=== PATIENT | male | born 1980 | race Caucasian/White ===

== ENCOUNTER → 2017-02-01 | Outpatient (CLI) | payer BC, OTHER ==
[~2017-02-01] MED LIST: AMPH20TA2 PO; ATOR10TA66 PO; FLT05NA16 NS; HYDR1CAP2 PO; LISI40TA PO; PANT20TA PO; SUCR1TAB23 PO
--- NOTE | 2017-02-01 16:07 | Diagnostic Imaging Report ---
PROCEDURE: MRI lumbar spine. TECHNIQUE: Multiplanar, multisequence MRI of the lumbar spine was performed without contrast. INDICATION: Chronic low back pain. COMPARISON: 04/28/2012 exam is reviewed. The patient has had two back surgeries. FINDINGS: There is satisfactory alignment of the posterior spinal line. The vertebral body heights are preserved. There is mild disc desiccation in the lower lumbar spine. Moderate disc height loss is seen. There is bone marrow edema seen in L5 vertebral body which appears to be mostly centered along the upper and lower endplates and less prominent edema along the lower endplate of L4 and in the left L4 pedicle. These appear to be secondary to adjacent degenerative facets and disc changes with no suspicious focal marrow abnormality. The cauda equina and conus medullaris appear grossly unremarkable. T12/L1: No disc herniation, no spinal canal or foraminal stenosis. L1/2: No disc herniation. No spinal canal or foraminal stenosis. L2/3: No disc herniation. There is mild to moderate facet hypertrophy. No central canal, lateral recess or foraminal stenosis. L3/4: There is a central disc protrusion on top of a minimal diffuse bulge. There is mild bilateral facet hypertrophy. No central canal or lateral recess stenosis. No foraminal narrowing. L4/5: There is a diffuse disc bulge with a superimposed central disc protrusion that has a mild caudally migrated component. There is bilateral facet arthropathy of moderate degree. There is suggestion of prior limited left hemilaminectomy and removal of portions of the left ligamentum flavum at this level. There is no remaining significant spinal canal stenosis or lateral recess narrowing. The foramina demonstrate [id number] stenosis on the left and no significant stenosis on the right side. L5/S1: There is a disc bulge asymmetric to the left and mild facet arthropathy bilaterally. No central canal stenosis. There is mild lateral recess stenosis on the left and no lateral recess stenosis on the right side. There is no foraminal stenosis on the right and there is moderate foraminal stenosis on the left abutting the exiting left L5 nerve root. The far lateral portion of the disc also is abutting the exiting left L5 nerve root. IMPRESSION: Lower lumbar spine disc and facet degenerative changes. There is moderate foraminal stenosis on the left at L5/S1 level and slightly prominent left far lateral component of the disc abutting the left L5 nerve. Dictated by: Dictated on workstation # [id number]
== END ==
LOC: RAD 14:18
PROVIDERS: ATTEND Orthopaedic Surgery Orthopaedic Surgery of the Spine
DX: M51.36 Other intervertebral disc degeneration, lumbar region (principal); M48.061 Spinal stenosis, lumbar region without neurogenic claudication
CPT/HCPCS: 72148

== ENCOUNTER → 2018-04-05 | Outpatient (CLI) | payer BC ==
[~2018-04-05] MED LIST changes: +HYDR-3820 PO; +LORA10TA7 PO
--- NOTE | 2018-04-05 12:11 | Diagnostic Imaging Report ---
INDICATION: Left-sided scrotal mass. TECHNIQUE: Real-time grayscale sonographic imaging and color vascular evaluation of both testicles was performed. CORRELATION STUDY: None FINDINGS: RIGHT testicle measures 5.5 x 2.9 x 3.0 cm. LEFT testicle measures 5.4 x 3.1 x 3.0 cm. The testicles appear normal in echogenicity. No focal testicular mass demonstrated. There is vascular flow to the testicles. The epididymides appear unremarkable. In the far posterior aspect of the left scrotal sac, there is an ill-defined slightly hypoechoic heterogeneous region of echotexture. This measured approximately 2.2 x 2.2 cm and some peripheral vascularity is suggested. Questionable slight track not diving deep. Scrotal wall swelling appears to be present. IMPRESSION: 1. Testicles and epididymides appear unremarkable. Blood flow demonstrated to the testicles. 2. There is an ill-defined heterogeneous approximately 2 cm mass in the scrotal wall of the left aspect. The spine is nonspecific. Possibly inflammatory infectious etiology could account for this. Neoplastic process would be difficult to exclude. Correlation with clinical findings recommended. Dictated by: Dictated on workstation # [id number]
== END ==
LOC: RAD 09:56
PROVIDERS: ATTEND Surgery
DX: N50.89 Other specified disorders of the male genital organs (principal)
CPT/HCPCS: 76870

== ENCOUNTER → 2018-04-05 | Outpatient (CLI) | payer OTHER ==
[~2018-04-05] VITALS: Ht 182.9 cm; Wt 105.2 kg
== END ==
LOC: PREOP 05:36
PROVIDERS: ATTEND Surgery
DX: Z01.818 Encounter for other preprocedural examination (principal)

== ENCOUNTER → 2019-02-01 | Outpatient (CLI) | payer BC ==
--- NOTE | 2019-02-01 12:02 | Diagnostic Imaging Report ---
INDICATION: Low back pain. Lumbar spine. FINDINGS: AP and lateral views of the lumbar spine show postoperative changes from dorsal discectomy and fusion at L4-L5 and L5-S1. The hardware appears to be intact with no evidence of loosening or failure. Patient has also had laminectomies of L4 and L5. Other vertebral levels and disks are normal. IMPRESSION: Postoperative changes from discectomy and fusion at L4-L5 and L5-S1. No acute abnormalities seen. Dictated by: Dictated on workstation # [id number]
== END ==
LOC: RAD 11:37
PROVIDERS: ATTEND Family Medicine
DX: M54.5 Low back pain (principal); Z98.1 Arthrodesis status; Z98.890 Other specified postprocedural states
CPT/HCPCS: 72100